=== PATIENT | male | born 1980 | race Caucasian/White ===

== ENCOUNTER → 2016-10-08 | Outpatient (CLI) | payer OTHER ==
[~2016-10-08] MED LIST: ADDER PO; IBUP-1428 PO
--- NOTE | 2016-10-08 15:56 | DIAGNOSTIC IMAGING REPORT ---
SACRUM COCCYX MIN 2 VIEWS CLINICAL HISTORY: COCCYGODYNIA COMPARISON STUDY: No previous studies for comparison. FINDINGS: No fractures or destructive lesions are visualized. There is no SI joint diastases. There are no erosive changes. There is no symphysis diastases. IMPRESSION: No fractures or destructive lesions are visualized. Electronically signed by: Demarco Crabtree M.D. 10/08/2016 3:55 PM Dictated Date/Time: 10/08/2016 3:54 PM
[2016-10-08 16:56] LABS: BENZODIAZEPINE, URINE NEG (NEG); COCAINE,URINE NEG (NEG); PHENCYCLIDINE, URINE NEG (NEG)
== END | disposition home or self-care (01) ==
LOC: C.RAD 15:08
PROVIDERS: ATTEND Internal Medicine Geriatric Medicine
DX: M53.3 Sacrococcygeal disorders, not elsewhere classified (principal)